=== PATIENT | male | born 1960 | race Caucasian/White ===

== ENCOUNTER → 2021-02-03 | Outpatient (CLI) | payer BC | LOC: EMI 13:55 | DX: M25.552 Pain in left hip (principal); M16.12 Unilateral primary osteoarthritis, left hip; G89.29 Other chronic pain; M94.251 Chondromalacia, right hip; M25.451 Effusion, right hip | CPT/HCPCS: 73721 ==

== ENCOUNTER → 2021-08-16 | Outpatient (CLI) | payer BC | LOC: HEART 5 13:42 | DX: Z01.811 Encounter for preprocedural respiratory examination (principal); J44.9 Chronic obstructive pulmonary disease, unspecified | CPT/HCPCS: 94010; 94729 ==